=== PATIENT | male | born 1990 | race Caucasian/White ===

== ENCOUNTER 2017-08-31 06:25 | Outpatient (CLI) | payer MEDICAID | END 2017-08-31 06:26 | disposition short-term general hospital (02) | LOC: EMS 06:25 | PROVIDERS: ATTEND Surgery | DX: R46.89 Other symptoms and signs involving appearance and behavior (principal) | CPT/HCPCS: A0425; A0429; A0888; A0999 ==

== ENCOUNTER 2017-09-16 14:15 | Emergency (ER) | payer MEDICAID ==
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
[2017-09-16 15:08] LABS: BASOPHILS # (AUTO) 0.1 10^3/uL (0.0-0.1); BASOPHILS % (AUTO) 1.1 %; EOSINOPHILS # (AUTO) 0.1 10^3/uL (0.0-0.7); EOSINOPHILS % (AUTO) 2.1 %; HGB - HEMOGLOBIN 15.1 g/dL (14.0-18.0); LYMPHOCYTES # (AUTO) 1.4 10^3/uL (1.5-3.5); LYMPHOCYTES % (AUTO) 20.6 %; MEAN CORPUSCULAR HEMOGLOBIN 29.6 pg (27.0-31.0); MEAN CORPUSCULAR HGB CONC 34.1 g/dL (32.0-36.0); MEAN PLATELET VOLUME 6.5 fL (7.4-11.4); MONOCYTES # (AUTO) 0.4 10^3/uL (0.0-1.0); MONOCYTES % (AUTO) 5.3 %; NEUTROPHILS # (AUTO) 4.8 10^3/uL (1.5-6.6); NEUTROPHILS % (AUTO) 70.9 %; PLT - PLATELET COUNT 318 10^3/uL (130-450); RED CELL DISTRIBUTION WIDTH 13.4 % (12.0-15.0); WHITE BLOOD COUNT 6.8 x10^3/uL (4.8-10.8)
[2017-09-16 15:21] LABS: LITHIUM 0.21 mmol/L
[2017-09-16 15:26] LABS: ALBUMIN 4.3 g/dL (3.2-5.5); ALBUMIN/GLOBULIN RATIO 1.2 (1.0-2.2); ALKALINE PHOSPHATASE 71 IU/L (42-121); ALT ALANINE AMINOTRANSFERASE 22 IU/L (10-60); AST ASPARTATE AMINOTRANSFERASE 28 IU/L (10-42); BUN - BLOOD UREA NITROGEN 12 mg/dL (6-20); CALCIUM 9.5 mg/dL (8.5-10.3); CARBON DIOXIDE - CO2 26 mmol/L (21-32); CHLORIDE 106 mmol/L (101-111); CREATININE 0.9 mg/dL (0.6-1.2); GFR - MDRD 102 (>89); GLUCOSE 92 mg/dL (70-100); LIPASE 21 U/L (22-51); SALICYLATE < 6.0 mg/dL; SODIUM 140 mmol/L (135-145); TOTAL PROTEIN 7.8 g/dL (6.7-8.2)
[2017-09-16 15:40] LABS: ACETAMINOPHEN < 10 ug/mL (10-30)
[2017-09-16 15:48] LABS: MUDS CUTOFF CONCENTRATIONS CUTOFF CONC BELOW:
[2017-09-16 15:49] LABS: BILIRUBIN,URINE NEGATIVE (NEGATIVE); GLUCOSE, URINE (UA) NEGATIVE (NEGATIVE); KETONES,URINE (UA) NEGATIVE (NEGATIVE); LEUKOCYTE ESTERASE, URINE NEGATIVE (NEGATIVE); NITRITE,URINE NEGATIVE (NEGATIVE); OCCULT BLOOD,URINE NEGATIVE (NEGATIVE); PH,URINE 6.5 PH (5.0-7.5); PROTEIN,URINE NEGATIVE (NEGATIVE); UROBILINOGEN,URINE 0.2 (NORMAL) E.U./dL (NORMAL)
[2017-09-16 15:51] LABS: CLARITY,URINE CLEAR (CLEAR)
[2017-09-16 15:59] LABS: AMPHETAMINE SCREEN,URINE NEGATIVE (NEGATIVE); BENZODIAZEPINES SCREEN, URINE NEGATIVE (NEGATIVE); COCAINE SCREEN URINE NEGATIVE (NEGATIVE); METHADONE SCREEN, URINE NEGATIVE (NEGATIVE); METHAMPHETAMINES SCREEN, URINE NEGATIVE (NEGATIVE); OPIATE SCREEN, URINE NEGATIVE (NEGATIVE); OXYCODONE SCREEN, URINE NEGATIVE (NEGATIVE); PROPOXYPHENE SCREEN, URINE NEGATIVE (NEGATIVE); TRICYCLIC ANTIDEPRESSANT,URINE NEGATIVE (NEGATIVE)
[2017-09-16] MEDS ORDERED: OLANZapine ODT 5 MG TABLET TL STA (19:42)
[2017-09-16] MEDS ORDERED: LITHIUM 150 MG CAPSULE PO STA (19:43)
--- NOTE | 2017-09-16 19:54 | TELEPSYCH PHYS NOTE ---
Telepsych Note - DRUG/ALCOHOL HX Substance Use and Type: Marijuana ETOH Use: Beer - MEDICAL HX Does the pt have a hx of MRSA?: No Neurological History: None Eyes, Ears, Nose, Throat: Chronic vision loss Cardiovascular: None Respiratory: None - HOME MEDICATIONS Home Meds (as last confirmed): Patient History Medication Instructions Recorded Confirmed Home Medications Unobtainable 09/16/17 09/16/17 [HOME MEDICATIONS UNOBTAINABLE] - ALLERGIES Allergies (as last confirmed): Allergies Allergy/AdvReac Type Severity Reaction Status Date / Time Unable to Assess Allergy Verified 09/16/17 14:24
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
[2017-09-17] MEDS ORDERED: OLANZapine ODT 5 MG TABLET TL STA (00:37)
--- NOTE | 2017-09-17 06:30 | ED Physician Documentation ---
ED Addendum - Addendum Addendum: 09/17/17 07:00 AM The patient's care was turned over to me by the off going emergency physician. The patient has been medically cleared and currently is pending evaluation by social work. The patient currently is voluntary. Please refer to the prior physicians history and physical for a comprehensive history. The patient was stable throughout the evening and currently is pending evaluation by social work. The patient's care will be turned over to the oncoming emergency physician Dr. De Jesus for final disposition
[2017-09-17] MEDS ORDERED: LITHIUM 150 MG CAPSULE PO STA ×2 (07:53→18:52)
[2017-09-17] MEDS ORDERED: ARIPiprazole 5 MG TABLET PO STA (07:54)
--- NOTE | 2017-09-17 22:54 | ED Physician Documentation ---
ED Addendum - Addendum Addendum: Patient signed out to me after SW saw the patient. At this time it does not appear that the patient is able to be voluntary and will need [facility] evaluation. He is on a [address] and is actively talking to multiple people in the room, although no one else is actually in the room. Appears acutely decompensated. Jayla [facility], came and placed the patient on an invol hold. [facility] accepts, Dr. Hugo Gardiner at approx [phone]. Patient will need to arrive at approx 0900 tomorrow at [facility]. Maintained on lithium and abilify here. This document was made in part using voice recognition software. While efforts are made to proofread this document, sound alike and grammatical errors may occur. Departure - Departure Disposition: 65 Psych Hosp/Unit DC/Ayan Clinical Impression: Severe bipolar I disorder, recurrent manic episode, with psychotic behavior Condition: Stable
[2017-09-18] MEDS ORDERED: OLANZapine ODT 5 MG TABLET TL STA (02:54)
[2017-09-18] MEDS ORDERED: ARIPiprazole 5 MG TABLET PO STA (07:37)
[2017-09-18] MEDS ORDERED: LITHIUM 150 MG CAPSULE PO STA (07:37)
[2017-09-18 09:18] VITALS: BP 154/92
== END 2017-09-18 09:33 ==
LOC: ED 14:24
DX: Z04.6 Encounter for general psychiatric examination, requested by authority (principal); F31.2 Bipolar disorder, current episode manic severe with psychotic features; S90.822A Blister (nonthermal), left foot, initial encounter; X58.XXXA Exposure to other specified factors, initial encounter; Y93.01 Activity, walking, marching and hiking; R45.851 Suicidal ideations; T43.596A Underdosing of other antipsychotics and neuroleptics, initial encounter; G47.00 Insomnia, unspecified; Z75.1 Person awaiting admission to adequate facility elsewhere
CPT/HCPCS: 36415; 80053; 80178; 80306; 80307; 80320; 80329; 81003; 83690; 85025; 97597; 99284; 99285; A9270; G0425; Q3014; 81001; 87086

== ENCOUNTER 2018-02-26 13:39 | Outpatient (CLI) | payer MEDICAID | END 2018-02-26 13:40 | disposition critical access hospital (66) | LOC: EMS 13:39 | PROVIDERS: ATTEND Surgery | DX: Z04.6 Encounter for general psychiatric examination, requested by authority (principal) | CPT/HCPCS: A0425; A0429 ==

== ENCOUNTER 2018-02-26 14:14 | Emergency (ER) | payer MEDICAID ==
--- NOTE | 2018-02-26 14:38 | ED Physician Documentation ---
PD HPI MHE - Stated complaint Stated Complaint: MHE - Chief complaint Chief Complaint: MHE - History obtained from History obtained from: Patient - History of Present Illness Primary symptom: Psychosis, Anxiety, Other (not taking meds) Timing - onset: How many days ago (several days of not taking meds and worsening behavior at home.) Contributing factors: Other (family reports not taking all his meds regularly and acting manic and not eating/drinking.). No: Substance abuse - ETOH, Substance abuse - drugs Similar symptoms before: Diagnosis (bipolar disorder with hospitalization) Review of Systems Constitutional: denies: Fever Nose: denies: Rhinorrhea / runny nose, Congestion Throat: denies: Sore throat Respiratory: denies: Dyspnea, Cough GI: denies: Abdominal Pain, Nausea, Vomiting, Diarrhea Neurologic: denies: Focal weakness, Numbness, Confused, Headache Psychiatric: denies: Suicidal, Hallucinations PD PAST MEDICAL HISTORY - Past Medical History Cardiovascular: None Respiratory: None Neuro: None Endocrine/Autoimmune: None Psych: Bipolar disorder - Present Medications Home Medications: Ambulatory Orders Medication Instructions Recorded Confirmed Claude Carbonate [Claude 450 mg PO BID 02/26/18 02/26/18 Carbonate ER] OLANZapine [Zyprexa] 10 mg PO DAILY 02/26/18 02/26/18 - Allergies Allergies/Adverse Reactions: Allergies Allergy/AdvReac Type Severity Reaction Status Date / Time No Known Drug Allergies Allergy Verified 02/26/18 14:21 PD ED PE NORMAL - Vitals Vital signs reviewed: Yes - General General: Alert and oriented X 3, Well developed/nourished, Other (seems anxious and somewhat paranoid, stating he feels his family is trying to kill him (not saying in what way) and he is stating he feels he needs to be off his medications so that he can think more clearly.) - HEENT HEENT: Pharynx benign - Neck Neck: Supple, no meningeal sign, No adenopathy - Cardiac Cardiac: RRR, No murmur - Respiratory Respiratory: Clear bilaterally - Abdomen Abdomen: Soft, Non tender - Back Back: No CVA TTP - Derm Derm: Normal color, Warm and dry - Neuro Neuro: Alert and oriented X 3, No motor deficit, Normal speech, Other (ambulates without ataxia) Eye Opening: Spontaneous Motor: Obeys Commands Verbal: Oriented GCS Score: 15 - Psych Psych: No: Normal mood (anxious), Normal affect (somewhat paranoid) Results - Vitals Vitals: Vital Signs - 24 hr 02/26/18 14:18 Temperature 36.8 C Heart Rate 75 Respiratory 16 Rate Blood Pressure 152/87 H O2 Saturation 98 Oxygen O2 Source Room air - Labs Labs: Laboratory Tests 02/26/18 02/26/18 02/26/18 14:30 14:30 14:30 WBC 7.7 RBC 4.69 L Hgb 14.2 Hct 41.0 L MCV 87.4 MCH 30.2 MCHC 34.5 RDW 13.8 Plt Count 257 MPV 6.6 L Neut # (Auto) 5.7 Lymph # (Auto) 1.1 L [place] # (Auto) 0.6 Eos # (Auto) 0.2 Baso # (Auto) 0.1 Absolute Nucleated RBC 0.00 Nucleated RBC % 0.0 Sodium 136 Potassium 3.5 Chloride 101 Carbon Dioxide 24 Anion Gap 11.0 BUN 18 Creatinine 1.0 Estimated GFR (MDRD) 90 Glucose 96 Calcium 9.5 Total Bilirubin 1.7 H AST 38 ALT 18 Alkaline Phosphatase 67 Total Protein 7.5 Albumin 4.6 Globulin 2.9 Albumin/Globulin Ratio 1.6 Lipase 21 L TSH 1.77 Urine Color Urine Clarity Urine pH Ur Specific [place] Urine Protein Urine Glucose (UA) Urine Ketones Urine Occult Blood Urine Nitrite Urine Bilirubin Urine Urobilinogen Ur Leukocyte Esterase Ur Microscopic Review Urine Culture Comments Last Dose Date Last Dose Time Salicylates < 6.0 Urine Opiates Screen Ur Oxycodone Screen Urine Methadone Screen Ur Propoxyphene Screen Acetaminophen < 10 L Ur Barbiturates Screen Ur Tricyclics Screen Ur Phencyclidine Scrn Ur Amphetamine Screen U Methamphetamines Scrn U Benzodiazepines Scrn [place] Urine Cocaine Screen U Cannabinoids Screen Ethyl Alcohol < 5.0 02/26/18 02/26/18 15:03 15:06 WBC RBC Hgb Hct MCV MCH MCHC RDW Plt Count MPV Neut # (Auto) Lymph # (Auto) [place] # (Auto) Eos # (Auto) Baso # (Auto) Absolute Nucleated RBC Nucleated RBC % Sodium Potassium Chloride Carbon Dioxide Anion Gap BUN Creatinine Estimated GFR (MDRD) Glucose Calcium Total Bilirubin AST ALT Alkaline Phosphatase Total Protein Albumin Globulin Albumin/Globulin Ratio Lipase TSH Urine Color YELLOW Urine Clarity CLEAR Urine pH 6.5 Ur Specific [place] 1.020 Urine Protein TRACE Urine Glucose (UA) NEGATIVE Urine Ketones >=80 H Urine Occult Blood NEGATIVE Urine Nitrite NEGATIVE Urine Bilirubin NEGATIVE Urine Urobilinogen 0.2 (NORMAL) Ur Leukocyte Esterase NEGATIVE Ur Microscopic Review NOT INDICATED Urine Culture Comments NOT INDICATED Last Dose Date UNKNOWN Last Dose Time UNKNOWN Salicylates Urine Opiates Screen NEGATIVE Ur Oxycodone Screen NEGATIVE Urine Methadone Screen NEGATIVE Ur Propoxyphene Screen NEGATIVE Acetaminophen Ur Barbiturates Screen NEGATIVE Ur Tricyclics Screen NEGATIVE Ur Phencyclidine Scrn NEGATIVE Ur Amphetamine Screen NEGATIVE U Methamphetamines Scrn NEGATIVE U Benzodiazepines Scrn NEGATIVE [place] 1.54 H* Urine Cocaine Screen NEGATIVE U Cannabinoids Screen POSITIVE H Ethyl Alcohol PD MEDICAL DECISION MAKING - ED course Complexity details: reviewed results (his lithium level is elevated, presume to some dehydration and he had taken dose about 1 hour [employer] INS[employer]. He is not having any nausea, ataxia, headache. ECG is okay and vitals are good. No apparent toxicity symptoms. He is drinking lots of fluids here in the ER for us, so is rehydrating. ), re-evaluated patient (He remained calm and cooperative in the emergency department. He did allow for p.o. medications of Zyprexa and then an Ativan subsequently. He is resting now. He did drink lots of fluids at least 4 full glasses of water for us here.), considered differential, d/w patient, d/w bilingual sales consultant (JINA Dickerson. ) Departure - Departure Disposition: 65 Psych Hosp/Unit DC/Xfer Clinical Impression: Elevated lithium level, Severe bipolar I disorder, recurrent manic episode, with psychotic behavior Condition: Stable Record reviewed to determine appropriate education?: Yes
[2018-02-26 14:44] LABS: BASOPHILS # (AUTO) 0.1 10^3/uL (0.0-0.1); BASOPHILS % (AUTO) 0.8 %; EOSINOPHILS # (AUTO) 0.2 10^3/uL (0.0-0.7); EOSINOPHILS % (AUTO) 2.3 %; HGB - HEMOGLOBIN 14.2 g/dL (14.0-18.0); LYMPHOCYTES # (AUTO) 1.1 10^3/uL (1.5-3.5); LYMPHOCYTES % (AUTO) 14.5 %; MEAN CORPUSCULAR HEMOGLOBIN 30.2 pg (27.0-31.0); MEAN CORPUSCULAR HGB CONC 34.5 g/dL (32.0-36.0); MEAN CORPUSCULAR VOLUME 87.4 fL (80.0-94.0); MEAN PLATELET VOLUME 6.6 fL (7.4-11.4); MONOCYTES # (AUTO) 0.6 10^3/uL (0.0-1.0); MONOCYTES % (AUTO) 8.4 %; NEUTROPHILS # (AUTO) 5.7 10^3/uL (1.5-6.6); PLT - PLATELET COUNT 257 10^3/uL (130-450); RED BLOOD COUNT 4.69 10^6/uL (4.70-6.10); RED CELL DISTRIBUTION WIDTH 13.8 % (12.0-15.0); WHITE BLOOD COUNT 7.7 x10^3/uL (4.8-10.8)
[2018-02-26] MEDS ORDERED: OLANZapine ODT 5 MG TABLET TL ONE (14:58)
[2018-02-26 15:01] LABS: ACETAMINOPHEN < 10 ug/mL (10-30); ALBUMIN 4.6 g/dL (3.2-5.5); ALBUMIN/GLOBULIN RATIO 1.6 (1.0-2.2); ALKALINE PHOSPHATASE 67 IU/L (42-121); ALT ALANINE AMINOTRANSFERASE 18 IU/L (10-60); AST ASPARTATE AMINOTRANSFERASE 38 IU/L (10-42); BILIRUBIN,TOTAL 1.7 mg/dL (0.2-1.0); BUN - BLOOD UREA NITROGEN 18 mg/dL (6-20); CALCIUM 9.5 mg/dL (8.5-10.3); CARBON DIOXIDE - CO2 24 mmol/L (21-32); CHLORIDE 101 mmol/L (101-111); GFR - MDRD 90 (>89); GLUCOSE 96 mg/dL (70-100); LIPASE 21 U/L (22-51); SALICYLATE < 6.0 mg/dL; SODIUM 136 mmol/L (135-145); TOTAL PROTEIN 7.5 g/dL (6.7-8.2)
[2018-02-26 15:09] LABS: MUDS CUTOFF CONCENTRATIONS CUTOFF CONC BELOW:
[2018-02-26 15:11] LABS: BILIRUBIN,URINE NEGATIVE (NEGATIVE); GLUCOSE, URINE (UA) NEGATIVE (NEGATIVE); KETONES,URINE (UA) >=80 mg/dL (NEGATIVE); LEUKOCYTE ESTERASE, URINE NEGATIVE (NEGATIVE); NITRITE,URINE NEGATIVE (NEGATIVE); OCCULT BLOOD,URINE NEGATIVE (NEGATIVE); PH,URINE 6.5 PH (5.0-7.5); PROTEIN,URINE TRACE mg/dL (NEGATIVE); UROBILINOGEN,URINE 0.2 (NORMAL) E.U./dL (NORMAL)
[2018-02-26 15:29] LABS: CLARITY,URINE CLEAR (CLEAR)
[2018-02-26 15:30] LABS: AMPHETAMINE SCREEN,URINE NEGATIVE (NEGATIVE); BENZODIAZEPINES SCREEN, URINE NEGATIVE (NEGATIVE); COCAINE SCREEN URINE NEGATIVE (NEGATIVE); METHADONE SCREEN, URINE NEGATIVE (NEGATIVE); METHAMPHETAMINES SCREEN, URINE NEGATIVE (NEGATIVE); OPIATE SCREEN, URINE NEGATIVE (NEGATIVE); OXYCODONE SCREEN, URINE NEGATIVE (NEGATIVE); PROPOXYPHENE SCREEN, URINE NEGATIVE (NEGATIVE); TRICYCLIC ANTIDEPRESSANT,URINE NEGATIVE (NEGATIVE)
[2018-02-26 16:01] LABS: LITHIUM 1.54 mmol/L
[2018-02-26] MEDS ORDERED: LORazepam 0.5 MG TABLET PO STA (16:28)
[2018-02-26 18:59] VITALS: BP 148/92
== END 2018-02-26 19:05 ==
LOC: EDUNIT# → ED 14:14
DX: F31.2 Bipolar disorder, current episode manic severe with psychotic features (principal); R78.89 Finding of other specified substances, not normally found in blood; E86.0 Dehydration; T43.596A Underdosing of other antipsychotics and neuroleptics, initial encounter; Z91.128 Patient's intentional underdosing of medication regimen for other reason
CPT/HCPCS: 36415; 80053; 80178; 80306; 80307; 80320; 80329; 81003; 83690; 84443; 85025; 93005; 99283; 99284; A9270; 81001; 87086

== ENCOUNTER 2018-03-05 18:11 | Emergency (ER) | payer MEDICAID ==
[2018-03-05 18:35] LABS: BASOPHILS # (AUTO) 0.1 10^3/uL (0.0-0.1); BASOPHILS % (AUTO) 1.2 %; EOSINOPHILS # (AUTO) 0.2 10^3/uL (0.0-0.7); EOSINOPHILS % (AUTO) 2.4 %; HGB - HEMOGLOBIN 15.4 g/dL (14.0-18.0); LYMPHOCYTES # (AUTO) 1.9 10^3/uL (1.5-3.5); LYMPHOCYTES % (AUTO) 29.2 %; MEAN CORPUSCULAR HEMOGLOBIN 29.2 pg (27.0-31.0); MEAN CORPUSCULAR HGB CONC 33.2 g/dL (32.0-36.0); MEAN CORPUSCULAR VOLUME 87.9 fL (80.0-94.0); MEAN PLATELET VOLUME 6.5 fL (7.4-11.4); MONOCYTES # (AUTO) 0.6 10^3/uL (0.0-1.0); MONOCYTES % (AUTO) 8.8 %; NEUTROPHILS # (AUTO) 3.8 10^3/uL (1.5-6.6); NEUTROPHILS % (AUTO) 58.4 %; PLT - PLATELET COUNT 329 10^3/uL (130-450); RED BLOOD COUNT 5.28 10^6/uL (4.70-6.10); RED CELL DISTRIBUTION WIDTH 13.6 % (12.0-15.0); WHITE BLOOD COUNT 6.5 x10^3/uL (4.8-10.8)
--- NOTE | 2018-03-05 18:46 | ED Physician Documentation ---
PD HPI MHE - Stated complaint Stated Complaint: MHE - Chief complaint Chief Complaint: MHE - History obtained from History obtained from: Patient - History of Present Illness Primary symptom: Psychosis (tangential thought scattered, with paranoid thoughts of his parents trying to keep him awake ("sitting with him all day and night"). He went to counselor at [facility], who felt the patient was hypomanic and paranoid. Parents saying the patient is not taking his meds. He is reportedly on LRO from [facility] to take meds.) Timing - onset: How many days ago (few) Contributing factors: Off meds (reportedly not taking regularly, though patient says he is.). No: Family, Substance abuse - ETOH, Substance abuse - drugs Similar symptoms before: Diagnosis (bipolar disorder with paranoia) Recently seen: Emergency Dept (seen a week ago for noncompliance and was admitted to [facility] for 3 days. Released 3 days ago and reportedly still having psych symptoms.), Admitted Review of Systems Constitutional: denies: Fever Nose: denies: Rhinorrhea / runny nose, Congestion Throat: denies: Sore throat Respiratory: denies: Cough GI: denies: Vomiting, Diarrhea Skin: denies: Rash, Lesions Musculoskeletal: denies: Neck pain, Back pain Neurologic: denies: Focal weakness, Numbness, Headache, Head injury Psychiatric: reports: Anxiety, Insomnia. denies: Suicidal, Homicidal, Hallucinations Endocrine: denies: Weight loss PD PAST MEDICAL HISTORY - Past Medical History Cardiovascular: None Respiratory: None Neuro: None Endocrine/Autoimmune: None GI: None : None HEENT: Chronic vision loss Psych: Bipolar disorder Musculoskeletal: None Derm: None - Past Surgical History Past Surgical History: No - Present Medications Home Medications: Ambulatory Orders Medication Instructions Recorded Confirmed [place] [employer] Carbonate [[place] [employer] 450 mg PO BID 02/26/18 03/05/18 Carbonate ER] OLANZapine [Zyprexa] 10 mg PO DAILY 02/26/18 03/05/18 - Allergies Allergies/Adverse Reactions: Allergies Allergy/AdvReac Type Severity Reaction Status Date / Time Sulfa (Sulfonamide Allergy Unknown Verified 03/05/18 18:56 Antibiotics) - Social History Does the pt smoke?: No Smoking Status: Never smoker Does the pt drink ETOH?: Yes Does the pt have substance abuse?: Yes - Immunizations Immunizations are current?: Yes - POLST Patient has POLST: No PD ED PE NORMAL - Vitals Vital signs reviewed: Yes - General General: Alert and oriented X 3, Well developed/nourished - HEENT HEENT: Pharynx benign. No: Moist mucous membranes - Neck Neck: Supple, no meningeal sign, No adenopathy - Cardiac Cardiac: RRR, No murmur - Respiratory Respiratory: Clear bilaterally - Abdomen Abdomen: Soft, Non tender - Derm Derm: Normal color, Warm and dry - Extremities Extremities: Normal ROM s pain - Neuro Neuro: Alert and oriented X 3, No motor deficit, Normal speech Eye Opening: Spontaneous Motor: Obeys Commands Verbal: Oriented GCS Score: 15 - Psych Psych: No: Normal mood (paranoid thoughts about his parents wanting to keep him awake for days to make him act crazy. He says he is taking his meds. His counselor brought med pack and some meds were still there. ) Results - Vitals Vitals: Vital Signs - 24 hr 03/05/18 03/05/18 18:19 20:51 Temperature 36.1 C L 36.9 C Heart Rate 95 92 Respiratory 16 15 Rate Blood Pressure 144/108 H 138/108 H O2 Saturation 98 97 Oxygen O2 Source Room air - Labs Labs: Laboratory Tests 03/05/18 03/05/18 03/05/18 18:29 18:29 18:29 WBC 6.5 RBC 5.28 Hgb 15.4 Hct 46.4 MCV 87.9 MCH 29.2 MCHC 33.2 RDW 13.6 Plt Count 329 MPV 6.5 L Neut # (Auto) 3.8 Lymph # (Auto) 1.9 [place] # (Auto) 0.6 Eos # (Auto) 0.2 Baso # (Auto) 0.1 Absolute Nucleated RBC 0.00 Nucleated RBC % 0.0 Sodium 134 L Potassium 3.3 L Chloride 98 L Carbon Dioxide 26 Anion Gap 10.0 BUN 10 Creatinine 1.2 Estimated GFR (MDRD) 73 L Glucose 102 H Calcium 9.6 Total Bilirubin 1.3 H AST 30 ALT 21 Alkaline Phosphatase 93 Total Protein 8.3 H Albumin 5.3 Globulin 3.0 Albumin/Globulin Ratio 1.8 Lipase 21 L Urine Color Urine Clarity Urine pH Ur Specific [place] Urine Protein Urine Glucose (UA) Urine Ketones Urine Occult Blood Urine Nitrite Urine Bilirubin Urine Urobilinogen Ur Leukocyte Esterase Ur Microscopic Review Urine Culture Comments Last Dose Date UNKNOWN Last Dose Time UNKNOWN Salicylates < 6.0 Urine Opiates Screen Ur Oxycodone Screen Urine Methadone Screen Ur Propoxyphene Screen Acetaminophen < 10 L Ur Barbiturates Screen Ur Tricyclics Screen Ur Phencyclidine Scrn Ur Amphetamine Screen U Methamphetamines Scrn U Benzodiazepines Scrn [place] [employer] [place] 0.51 Urine Cocaine Screen U Cannabinoids Screen Ethyl Alcohol < 5.0 03/05/18 Unknown WBC RBC Hgb Hct MCV MCH MCHC RDW Plt Count MPV Neut # (Auto) Lymph # (Auto) [place] # (Auto) Eos # (Auto) Baso # (Auto) Absolute Nucleated RBC Nucleated RBC % Sodium Potassium Chloride Carbon Dioxide Anion Gap BUN Creatinine Estimated GFR (MDRD) Glucose Calcium Total Bilirubin AST ALT Alkaline Phosphatase Total Protein Albumin Globulin Albumin/Globulin Ratio Lipase Urine Color YELLOW Urine Clarity CLEAR Urine pH 6.5 Ur Specific [place] 1.015 Urine Protein NEGATIVE Urine Glucose (UA) NEGATIVE Urine Ketones 40 H Urine Occult Blood NEGATIVE Urine Nitrite NEGATIVE Urine Bilirubin NEGATIVE Urine Urobilinogen 0.2 (NORMAL) Ur Leukocyte Esterase NEGATIVE Ur Microscopic Review NOT INDICATED Urine Culture Comments NOT INDICATED Last Dose Date Last Dose Time Salicylates Urine Opiates Screen NEGATIVE Ur Oxycodone Screen NEGATIVE Urine Methadone Screen NEGATIVE Ur Propoxyphene Screen NEGATIVE Acetaminophen Ur Barbiturates Screen NEGATIVE Ur Tricyclics Screen NEGATIVE Ur Phencyclidine Scrn NEGATIVE Ur Amphetamine Screen NEGATIVE U Methamphetamines Scrn NEGATIVE U Benzodiazepines Scrn NEGATIVE [place] [employer] [place] Urine Cocaine Screen NEGATIVE U Cannabinoids Screen POSITIVE H Ethyl Alcohol PD MEDICAL DECISION MAKING - ED course Complexity details: considered differential (Our high school social studies tutor is about done on his shift. However the patient is reportedly noncompliant and is having paranoia and tangential thoughts. He does not seem gravely disabled at this moment but given the LR O for taking his medicines, it seems reasonable he would likely have this revoked so would be under the auspices of the VOA and DCR. Wi ll call them to have them come see the patient.), d/w patient Departure - Departure Clinical Impression: Noncompliance with medication regimen Bipolar affective disorder Qualifiers: Active/Remission status: currently active Current bipolar episode type: h ypomanic Qualified Code(s): F31.0 - Bipolar disorder, current episode hypomanic Condition: Stable Record reviewed to determine appropriate education?: Yes
[2018-03-05 18:52] LABS: ACETAMINOPHEN < 10 ug/mL (10-30); ALBUMIN 5.3 g/dL (3.2-5.5); ALBUMIN/GLOBULIN RATIO 1.8 (1.0-2.2); ALKALINE PHOSPHATASE 93 IU/L (42-121); ALT ALANINE AMINOTRANSFERASE 21 IU/L (10-60); AST ASPARTATE AMINOTRANSFERASE 30 IU/L (10-42); BILIRUBIN,TOTAL 1.3 mg/dL (0.2-1.0); BUN - BLOOD UREA NITROGEN 10 mg/dL (6-20); CALCIUM 9.6 mg/dL (8.5-10.3); CARBON DIOXIDE - CO2 26 mmol/L (21-32); CHLORIDE 98 mmol/L (101-111); CREATININE 1.2 mg/dL (0.6-1.2); GFR - MDRD 73 (>89); GLUCOSE 102 mg/dL (70-100); LIPASE 21 U/L (22-51); SALICYLATE < 6.0 mg/dL; SODIUM 134 mmol/L (135-145); TOTAL PROTEIN 8.3 g/dL (6.7-8.2)
[2018-03-05 19:08] LABS: LITHIUM 0.51 mmol/L
[2018-03-05 19:23] LABS: MUDS CUTOFF CONCENTRATIONS CUTOFF CONC BELOW:
[2018-03-05 19:27] LABS: BILIRUBIN,URINE NEGATIVE (NEGATIVE); GLUCOSE, URINE (UA) NEGATIVE (NEGATIVE); KETONES,URINE (UA) 40 mg/dL (NEGATIVE); LEUKOCYTE ESTERASE, URINE NEGATIVE (NEGATIVE); NITRITE,URINE NEGATIVE (NEGATIVE); OCCULT BLOOD,URINE NEGATIVE (NEGATIVE); PH,URINE 6.5 PH (5.0-7.5); PROTEIN,URINE NEGATIVE (NEGATIVE); UROBILINOGEN,URINE 0.2 (NORMAL) E.U./dL (NORMAL)
[2018-03-05 19:29] LABS: CLARITY,URINE CLEAR (CLEAR)
[2018-03-05 19:35] LABS: AMPHETAMINE SCREEN,URINE NEGATIVE (NEGATIVE); BENZODIAZEPINES SCREEN, URINE NEGATIVE (NEGATIVE); COCAINE SCREEN URINE NEGATIVE (NEGATIVE); METHADONE SCREEN, URINE NEGATIVE (NEGATIVE); METHAMPHETAMINES SCREEN, URINE NEGATIVE (NEGATIVE); OPIATE SCREEN, URINE NEGATIVE (NEGATIVE); OXYCODONE SCREEN, URINE NEGATIVE (NEGATIVE); PROPOXYPHENE SCREEN, URINE NEGATIVE (NEGATIVE); TRICYCLIC ANTIDEPRESSANT,URINE NEGATIVE (NEGATIVE)
--- NOTE | 2018-03-05 23:15 | ED Physician Documentation ---
PD HPI MHE - Stated complaint Stated Complaint: MHE - Chief complaint Chief Complaint: MHE PD PAST MEDICAL HISTORY - Past Medical History Cardiovascular: None Respiratory: None Neuro: None Endocrine/Autoimmune: None GI: None : None HEENT: Chronic vision loss Psych: Bipolar disorder Musculoskeletal: None Derm: None - Past Surgical History Past Surgical History: No - Present Medications Home Medications: Ambulatory Orders Medication Instructions Recorded Confirmed [place] Carbonate [[place] 450 mg PO BID 02/26/18 03/05/18 Carbonate ER] OLANZapine [Zyprexa] 10 mg PO DAILY 02/26/18 03/05/18 - Allergies Allergies/Adverse Reactions: Allergies Allergy/AdvReac Type Severity Reaction Status Date / Time Sulfa (Sulfonamide Allergy Unknown Verified 03/05/18 18:56 Antibiotics) - Social History Does the pt smoke?: No Smoking Status: Never smoker Does the pt drink ETOH?: Yes Does the pt have substance abuse?: Yes - Immunizations Immunizations are current?: Yes - POLST Patient has POLST: No Results - Vitals Vitals: Vital Signs - 24 hr 03/05/18 03/05/18 03/05/18 18:19 20:51 22:41 Temperature 36.1 C L 36.9 C Heart Rate 95 92 106 H Respiratory 16 15 16 Rate Blood Pressure 144/108 H 138/108 H 147/86 H O2 Saturation 98 97 98 Oxygen O2 Source Room air - Labs Labs: Laboratory Tests 03/05/18 03/05/18 03/05/18 18:29 18:29 18:29 WBC 6.5 RBC 5.28 Hgb 15.4 Hct 46.4 MCV 87.9 MCH 29.2 MCHC 33.2 RDW 13.6 Plt Count 329 MPV 6.5 L Neut # (Auto) 3.8 Lymph # (Auto) 1.9 [place] # (Auto) 0.6 Eos # (Auto) 0.2 Baso # (Auto) 0.1 Absolute Nucleated RBC 0.00 Nucleated RBC % 0.0 Sodium 134 L Potassium 3.3 L Chloride 98 L Carbon Dioxide 26 Anion Gap 10.0 BUN 10 Creatinine 1.2 Estimated GFR (MDRD) 73 L Glucose 102 H Calcium 9.6 Total Bilirubin 1.3 H AST 30 ALT 21 Alkaline Phosphatase 93 Total Protein 8.3 H Albumin 5.3 Globulin 3.0 Albumin/Globulin Ratio 1.8 Lipase 21 L Urine Color Urine Clarity Urine pH Ur Specific [place] Urine Protein Urine Glucose (UA) Urine Ketones Urine Occult Blood Urine Nitrite Urine Bilirubin Urine Urobilinogen Ur Leukocyte Esterase Ur Microscopic Review Urine Culture Comments Last Dose Date UNKNOWN Last Dose Time UNKNOWN Salicylates < 6.0 Urine Opiates Screen Ur Oxycodone Screen Urine Methadone Screen Ur Propoxyphene Screen Acetaminophen < 10 L Ur Barbiturates Screen Ur Tricyclics Screen Ur Phencyclidine Scrn Ur Amphetamine Screen U Methamphetamines Scrn U Benzodiazepines Scrn [place] 0.51 Urine Cocaine Screen U Cannabinoids Screen Ethyl Alcohol < 5.0 03/05/18 Unknown WBC RBC Hgb Hct MCV MCH MCHC RDW Plt Count MPV Neut # (Auto) Lymph # (Auto) [place] # (Auto) Eos # (Auto) Baso # (Auto) Absolute Nucleated RBC Nucleated RBC % Sodium Potassium Chloride Carbon Dioxide Anion Gap BUN Creatinine Estimated GFR (MDRD) Glucose Calcium Total Bilirubin AST ALT Alkaline Phosphatase Total Protein Albumin Globulin Albumin/Globulin Ratio Lipase Urine Color YELLOW Urine Clarity CLEAR Urine pH 6.5 Ur Specific [place] 1.015 Urine Protein NEGATIVE Urine Glucose (UA) NEGATIVE Urine Ketones 40 H Urine Occult Blood NEGATIVE Urine Nitrite NEGATIVE Urine Bilirubin NEGATIVE Urine Urobilinogen 0.2 (NORMAL) Ur Leukocyte Esterase NEGATIVE Ur Microscopic Review NOT INDICATED Urine Culture Comments NOT INDICATED Last Dose Date Last Dose Time Salicylates Urine Opiates Screen NEGATIVE Ur Oxycodone Screen NEGATIVE Urine Methadone Screen NEGATIVE Ur Propoxyphene Screen NEGATIVE Acetaminophen Ur Barbiturates Screen NEGATIVE Ur Tricyclics Screen NEGATIVE Ur Phencyclidine Scrn NEGATIVE Ur Amphetamine Screen NEGATIVE U Methamphetamines Scrn NEGATIVE U Benzodiazepines Scrn NEGATIVE [place] Urine Cocaine Screen NEGATIVE U Cannabinoids Screen POSITIVE H Ethyl Alcohol PD MEDICAL DECISION MAKING - ED course ED course: 27-year-old male with history of bipolar disorder accepted signout from Dr. Gardiner. Patient pending voluntary placement. Patient without complaint at this time. Resting comfortably. Signed out to incoming provider. Departure - Departure Clinical Impression: Noncompliance with medication regimen Bipolar affective disorder Qualifiers: Active/Remission status: currently active Current bipolar episode type: hypomanic Qualified Code(s): F31.0 - Bipolar disorder, current episode hypomanic Condition: Stable
[2018-03-06] MEDS ORDERED: POTASSIUM CHLORIDE 20 MEQ TABLET PO STA (01:30)
[2018-03-06] MEDS ORDERED: SODIUM CHLORIDE 0.9% 2,000 ML IV ONE (01:39)
[2018-03-06 02:47] VITALS: BP 118/83
== END 2018-03-06 03:01 ==
LOC: ED 18:11
DX: F31.0 Bipolar disorder, current episode hypomanic (principal); Z91.14 Patient's other noncompliance with medication regimen
CPT/HCPCS: 36415; 80053; 80178; 80306; 80307; 80320; 80329; 81003; 83690; 85025; 93005; 96360; 99284; A9270; 81001; 87086

== ENCOUNTER 2018-03-06 03:03 | Outpatient (CLI) | payer MEDICAID | END 2018-03-06 03:04 | disposition other institution (70) | LOC: EMS 03:03 | PROVIDERS: ATTEND Surgery | CPT/HCPCS: A0425; A0428; A0999 ==

== ENCOUNTER 2018-05-08 11:15 | Emergency (ER) | payer MEDICAID ==
--- NOTE | 2018-05-08 12:04 | ED Physician Documentation ---
History of Present Illness - Stated complaint Stated Complaint: MHE - Chief complaint Chief Complaint: MHE - History obtained from History obtained from: Patient - Additonal information Additional information: Patient is a 27-year-old male with history of bipolar disorder presenting with concern for decompensation in his outpatient therapy. Patient was brought in by his outpatient provider. Patient was previously an inpatient facility and since discharge, has slowly been declining. Patient reports that his symptoms have worsened because of an argument with his father. He admits to alcohol use and there is questionable marijuana use. Patient denies suicidal ideation, homicidal ideation, or hallucinations. However, patient has declining hygiene levels and is experiencing paranoia.Patient denies other medical complaints such as fever, shortness of breath, cough, abdominal pain, vomiting, urinary or stool changes. No other improving or worsening factors noted to his symptoms. Review of Systems Constitutional: denies: Fever Psychiatric: denies: Suicidal, Homicidal, Hallucinations PD PAST MEDICAL HISTORY - Past Medical History Cardiovascular: None Respiratory: None Neuro: None Endocrine/Autoimmune: None GI: None : None HEENT: Chronic vision loss Psych: Bipolar disorder Musculoskeletal: None Derm: None - Past Surgical History Past Surgical History: No - Present Medications Home Medications: Ambulatory Orders Medication Instructions Recorded Confirmed [place] Carbonate [[place] 450 mg PO BID 02/26/18 05/08/18 Carbonate ER] OLANZapine [Zyprexa] 10 mg PO DAILY 02/26/18 05/08/18 Levothyroxine [Synthroid] 125 mcg PO QDAC 05/08/18 05/08/18 - Allergies Allergies/Adverse Reactions: Allergies Allergy/AdvReac Type Severity Reaction Status Date / Time Sulfa (Sulfonamide Allergy Unknown Verified 05/08/18 11:30 Antibiotics) - Social History Does the pt smoke?: No Smoking Status: Never smoker Does the pt drink ETOH?: Yes Does the pt have substance abuse?: Yes - Immunizations Immunizations are current?: Yes - POLST Patient has POLST: No PD ED PE NORMAL - General General: Alert and oriented X 3, No acute distress, Well developed/nourished, Other (Pacing around room, poor hygiene) - HEENT HEENT: Atraumatic, PERRL, Moist mucous membranes, Pharynx benign - Cardiac Cardiac: RRR, No murmur - Respiratory Respiratory: No respiratory distress, Clear bilaterally - Abdomen Abdomen: Normal bowel sounds, Soft, Non tender, Non distended - Derm Derm: Normal color, Warm and dry, No rash - Neuro Neuro: Alert and oriented X 3, No motor deficit, No sensory deficit (No gross motor or sensory deficits noted) - Psych Psych: Other (Flat affect. Poor eye contact. Denies suicidal or homicidal ideations, as well as hallucinations) Results - Vitals Vitals: Vital Signs - 24 hr 05/08/18 11:27 Temperature 36.5 C Heart Rate 79 Respiratory 14 Rate Blood Pressure 146/82 H O2 Saturation 98 Oxygen O2 Source Room air - EKG (time done) 1312 Rate: Rate (enter#) (63) Rhythm: NSR Ischemia: Other (Early repolarization noted) - Labs Labs: Laboratory Tests 05/08/18 05/08/18 05/08/18 12:06 12:06 12:06 WBC 8.1 RBC 4.92 Hgb 14.3 Hct 42.3 MCV 86.0 MCH 29.1 MCHC 33.9 RDW 13.7 Plt Count 319 MPV 6.7 L Neut # (Auto) 5.8 Lymph # (Auto) 1.5 [place] # (Auto) 0.5 Eos # (Auto) 0.2 Baso # (Auto) 0.1 Absolute Nucleated RBC 0.00 Nucleated RBC % 0.0 Sodium 137 Potassium 3.4 L Chloride 104 Carbon Dioxide 24 Anion Gap 9.0 BUN 9 Creatinine 1.0 Estimated GFR (MDRD) 90 Glucose 106 H Calcium 10.1 Total Bilirubin 1.0 AST 27 ALT 16 Alkaline Phosphatase 93 Total Protein 8.4 H Albumin 5.2 Globulin 3.2 Albumin/Globulin Ratio 1.6 Lipase 26 TSH 0.81 Urine Color Urine Clarity Urine pH Ur Specific [employer] Urine Protein Urine Glucose (UA) Urine Ketones Urine Occult Blood Urine Nitrite Urine Bilirubin Urine Urobilinogen Ur Leukocyte Esterase Ur Microscopic Review Urine Culture Comments Last Dose Date Last Dose Time Salicylates < 6.0 Urine Opiates Screen Ur Oxycodone Screen Urine Methadone Screen Ur Propoxyphene Screen Acetaminophen < 10 L Ur Barbiturates Screen Ur Tricyclics Screen Ur Phencyclidine Scrn Ur Amphetamine Screen U Methamphetamines Scrn U Benzodiazepines Scrn [place] Urine Cocaine Screen U Cannabinoids Screen Ethyl Alcohol < 5.0 05/08/18 05/08/18 13:36 17:22 WBC RBC Hgb Hct MCV MCH MCHC RDW Plt Count MPV Neut # (Auto) Lymph # (Auto) [place] # (Auto) Eos # (Auto) Baso # (Auto) Absolute Nucleated RBC Nucleated RBC % Sodium Potassium Chloride Carbon Dioxide Anion Gap BUN Creatinine Estimated GFR (MDRD) Glucose Calcium Total Bilirubin AST ALT Alkaline Phosphatase Total Protein Albumin Globulin Albumin/Globulin Ratio Lipase TSH Urine Color YELLOW Urine Clarity CLEAR Urine pH 7.5 Ur Specific [employer] 1.010 Urine Protein NEGATIVE Urine Glucose (UA) NEGATIVE Urine Ketones NEGATIVE Urine Occult Blood NEGATIVE Urine Nitrite NEGATIVE Urine Bilirubin NEGATIVE Urine Urobilinogen 0.2 (NORMAL) Ur Leukocyte Esterase NEGATIVE Ur Microscopic Review NOT INDICATED Urine Culture Comments NOT INDICATED Last Dose Date UNKNOWN Last Dose Time UNKNOWN Salicylates Urine Opiates Screen NEGATIVE Ur Oxycodone Screen NEGATIVE Urine Methadone Screen NEGATIVE Ur Propoxyphene Screen NEGATIVE Acetaminophen Ur Barbiturates Screen NEGATIVE Ur Tricyclics Screen NEGATIVE Ur Phencyclidine Scrn NEGATIVE Ur Amphetamine Screen NEGATIVE U Methamphetamines Scrn NEGATIVE U Benzodiazepines Scrn NEGATIVE [place] 0.97 Urine Cocaine Screen NEGATIVE U Cannabinoids Screen NEGATIVE Ethyl Alcohol PD MEDICAL DECISION MAKING - ED course Complexity details: reviewed results, re-evaluated patient, considered differential, d/w patient, d/w [employer] consultant ED course: Patient presenting requesting mental health evaluation. Patient was accompanied by his outpatient clinician, who is concerned about the patient's decompensation since discharge from an inpatient facility for his mental illness. Patient admits to use of alcohol and possibly recreational drugs. He denies self-harm behavior, as well as suicidal or homicidal ideation, and hallucinations. Patient also denies any regular medical complaints. Do not find evidence of new trauma, neurological deficit, or systemic infection on exam. Screening lab work, urinalysis, EKG obtained. Social work consulted and evaluated patient in ED. Social work starting process for placement. Screening lab work, urinalysis, drug testing returned relatively unremarkable. Social work reported that multiple locations including [facility] are not willing to take patient voluntarily at this time. Social work is working on potential detainment for grave disability. [facility] contacted, evaluated patient, and placed him back to [facility]. Departure - Departure Disposition: 02 Transfer Acute Care Hosp Clinical Impression: Grave disability
[2018-05-08 12:16] LABS: BASOPHILS # (AUTO) 0.1 10^3/uL (0.0-0.1); BASOPHILS % (AUTO) 1.2 %; EOSINOPHILS # (AUTO) 0.2 10^3/uL (0.0-0.7); EOSINOPHILS % (AUTO) 2.2 %; HGB - HEMOGLOBIN 14.3 g/dL (14.0-18.0); LYMPHOCYTES # (AUTO) 1.5 10^3/uL (1.5-3.5); LYMPHOCYTES % (AUTO) 18.2 %; MEAN CORPUSCULAR HEMOGLOBIN 29.1 pg (27.0-31.0); MEAN CORPUSCULAR HGB CONC 33.9 g/dL (32.0-36.0); MEAN PLATELET VOLUME 6.7 fL (7.4-11.4); MONOCYTES # (AUTO) 0.5 10^3/uL (0.0-1.0); MONOCYTES % (AUTO) 6.5 %; NEUTROPHILS # (AUTO) 5.8 10^3/uL (1.5-6.6); NEUTROPHILS % (AUTO) 71.9 %; PLT - PLATELET COUNT 319 10^3/uL (130-450); RED BLOOD COUNT 4.92 10^6/uL (4.70-6.10); RED CELL DISTRIBUTION WIDTH 13.7 % (12.0-15.0); WHITE BLOOD COUNT 8.1 x10^3/uL (4.8-10.8)
[2018-05-08 12:30] LABS: ACETAMINOPHEN < 10 ug/mL (10-30); ALBUMIN 5.2 g/dL (3.2-5.5); ALBUMIN/GLOBULIN RATIO 1.6 (1.0-2.2); ALKALINE PHOSPHATASE 93 IU/L (42-121); ALT ALANINE AMINOTRANSFERASE 16 IU/L (10-60); AST ASPARTATE AMINOTRANSFERASE 27 IU/L (10-42); BUN - BLOOD UREA NITROGEN 9 mg/dL (6-20); CALCIUM 10.1 mg/dL (8.5-10.3); CARBON DIOXIDE - CO2 24 mmol/L (21-32); CHLORIDE 104 mmol/L (101-111); GFR - MDRD 90 (>89); GLUCOSE 106 mg/dL (70-100); LIPASE 26 U/L (22-51); SALICYLATE < 6.0 mg/dL; SODIUM 137 mmol/L (135-145); TOTAL PROTEIN 8.4 g/dL (6.7-8.2)
[2018-05-08 13:47] LABS: MUDS CUTOFF CONCENTRATIONS CUTOFF CONC BELOW:
[2018-05-08 13:57] LABS: BILIRUBIN,URINE NEGATIVE (NEGATIVE); GLUCOSE, URINE (UA) NEGATIVE (NEGATIVE); KETONES,URINE (UA) NEGATIVE (NEGATIVE); LEUKOCYTE ESTERASE, URINE NEGATIVE (NEGATIVE); NITRITE,URINE NEGATIVE (NEGATIVE); OCCULT BLOOD,URINE NEGATIVE (NEGATIVE); PH,URINE 7.5 PH (5.0-7.5); PROTEIN,URINE NEGATIVE (NEGATIVE); UROBILINOGEN,URINE 0.2 (NORMAL) E.U./dL (NORMAL)
[2018-05-08 13:59] LABS: CLARITY,URINE CLEAR (CLEAR)
[2018-05-08 14:02] LABS: AMPHETAMINE SCREEN,URINE NEGATIVE (NEGATIVE); BENZODIAZEPINES SCREEN, URINE NEGATIVE (NEGATIVE); COCAINE SCREEN URINE NEGATIVE (NEGATIVE); METHADONE SCREEN, URINE NEGATIVE (NEGATIVE); METHAMPHETAMINES SCREEN, URINE NEGATIVE (NEGATIVE); OPIATE SCREEN, URINE NEGATIVE (NEGATIVE); OXYCODONE SCREEN, URINE NEGATIVE (NEGATIVE); PROPOXYPHENE SCREEN, URINE NEGATIVE (NEGATIVE); TRICYCLIC ANTIDEPRESSANT,URINE NEGATIVE (NEGATIVE)
[2018-05-08 18:08] LABS: LITHIUM 0.97 mmol/L
[2018-05-08 18:20] VITALS: BP 113/69
== END 2018-05-08 22:35 | disposition short-term general hospital (02) ==
LOC: ED 11:15
DX: Z00.8 Encounter for other general examination (principal); F99 Mental disorder, not otherwise specified
CPT/HCPCS: 36415; 80053; 80178; 80306; 80307; 80320; 80329; 81001; 81003; 83690; 84443; 85025; 87086; 93005; 99283; 99284

== ENCOUNTER 2018-05-08 22:35 | Outpatient (CLI) | payer MEDICAID | END 2018-05-08 22:36 | LOC: EMS 22:35 | PROVIDERS: ATTEND Surgery | DX: F99 Mental disorder, not otherwise specified (principal) | CPT/HCPCS: A0425; A0428; A0999 ==

== ENCOUNTER 2020-10-18 11:40 | Emergency (ER) | payer BC, MEDICAID ==
[2020-10-18 12:00] VITALS: BP 145/89
[2020-10-18 13:35] LABS: BASOPHILS # (AUTO) 0.1 10^3/uL (0.0-0.1); EOSINOPHILS # (AUTO) 0.2 10^3/uL (0.0-0.7); EOSINOPHILS % (AUTO) 2.9 %; HCT - HEMATOCRIT 44.1 % (42.0-52.0); HGB - HEMOGLOBIN 14.8 g/dL (14.0-18.0); LYMPHOCYTES # (AUTO) 1.2 10^3/uL (1.5-3.5); LYMPHOCYTES % (AUTO) 19.7 %; MEAN CORPUSCULAR HGB CONC 33.6 g/dL (32.0-36.0); MEAN CORPUSCULAR VOLUME 89.3 fL (80.0-94.0); MEAN PLATELET VOLUME 8.7 fL (7.4-11.4); MONOCYTES # (AUTO) 0.5 10^3/uL (0.0-1.0); MONOCYTES % (AUTO) 7.3 %; NEUTROPHILS # (AUTO) 4.4 10^3/uL (1.5-6.6); NEUTROPHILS % (AUTO) 68.8 %; PLT - PLATELET COUNT 261 10^3/uL (130-450); RED BLOOD COUNT 4.94 10^6/uL (4.70-6.10); RED CELL DISTRIBUTION WIDTH 12.5 % (12.0-15.0); WHITE BLOOD COUNT 6.3 x10^3/uL (4.8-10.8)
[2020-10-18 13:44] LABS: MUDS CUTOFF CONCENTRATIONS CUTOFF CONC BELOW:
[2020-10-18 13:52] LABS: ACETAMINOPHEN < 10 ug/mL (10-30); ALBUMIN 5.2 g/dL (3.2-5.5); ALBUMIN/GLOBULIN RATIO 1.8 (1.0-2.2); ALKALINE PHOSPHATASE 65 IU/L (42-121); ALT ALANINE AMINOTRANSFERASE 16 IU/L (10-60); AST ASPARTATE AMINOTRANSFERASE 22 IU/L (10-42); BILIRUBIN,TOTAL 0.9 mg/dL (0.2-1.0); BUN - BLOOD UREA NITROGEN 15 mg/dL (6-20); CALCIUM 10.2 mg/dL (8.5-10.3); CARBON DIOXIDE - CO2 25 mmol/L (21-32); CHLORIDE 102 mmol/L (101-111); CREATININE 1.1 mg/dL (0.6-1.2); ETOH - ETHANOL < 5.0 mg/dL; GFR - MDRD 79 (>89); GLUCOSE 114 mg/dL (70-100); LIPASE 26 U/L (22-51); POTASSIUM 3.7 mmol/L (3.5-5.0); SALICYLATE < 6.0 mg/dL; SODIUM 137 mmol/L (135-145); TOTAL PROTEIN 8.1 g/dL (6.7-8.2)
[2020-10-18 13:53] LABS: BILIRUBIN,URINE NEGATIVE (NEGATIVE); GLUCOSE, URINE (UA) NEGATIVE (NEGATIVE); KETONES,URINE (UA) NEGATIVE (NEGATIVE); LEUKOCYTE ESTERASE, URINE NEGATIVE (NEGATIVE); NITRITE,URINE NEGATIVE (NEGATIVE); OCCULT BLOOD,URINE NEGATIVE (NEGATIVE); PH,URINE 7.5 PH (5.0-7.5); PROTEIN,URINE NEGATIVE (NEGATIVE); UROBILINOGEN,URINE 0.2 (NORMAL) E.U./dL (NORMAL)
[2020-10-18 13:56] LABS: CLARITY,URINE CLEAR (CLEAR)
[2020-10-18 14:02] LABS: AMPHETAMINE SCREEN,URINE NEGATIVE (NEGATIVE); BARBITURATE SCREEN,UR NEGATIVE (NEGATIVE); BENZODIAZEPINES SCREEN, URINE NEGATIVE (NEGATIVE); COCAINE SCREEN URINE NEGATIVE (NEGATIVE); METHADONE SCREEN, URINE NEGATIVE (NEGATIVE); METHAMPHETAMINES SCREEN, URINE NEGATIVE (NEGATIVE); OPIATE SCREEN, URINE NEGATIVE (NEGATIVE); OXYCODONE SCREEN, URINE NEGATIVE (NEGATIVE); PROPOXYPHENE SCREEN, URINE NEGATIVE (NEGATIVE); THC CANNABINOID SCREEN, URINE NEGATIVE (NEGATIVE); TRICYCLIC ANTIDEPRESSANT,URINE NEGATIVE (NEGATIVE)
--- NOTE | 2020-10-18 14:17 | ED Physician Documentation ---
History of Present Illness - Stated complaint Stated Complaint: MHE - Chief complaint Chief Complaint: MHE - History obtained from History obtained from: Patient - History of Present Illness Timing: Today Pain level max: 0 Pain level now: 0 - Additonal information Additional information: Patient is a 29-year-old male who presents to the emergency department stating that he normally receives paliperidone every 3 months, however he feels like the date was miscalculated and he is starting to feel generally unwell. Difficulty sleeping, feeling restless. He states he is not suicidal or homicidal. He does not wish to speak with the licensed master social worker at this time. He states that he used to be on Geodon and that this helped as well. He is still taking his lithium. Review of Systems Constitutional: denies: Fever, Chills Respiratory: denies: Cough GI: denies: Nausea, Vomiting, Diarrhea PD PAST MEDICAL HISTORY - Past Medical History Cardiovascular: None Respiratory: None Neuro: None Endocrine/Autoimmune: None GI: None : None HEENT: Chronic vision loss Psych: Bipolar disorder, Other Musculoskeletal: None Derm: None - Past Surgical History Past Surgical History: No - Present Medications Home Medications: Ambulatory Orders Medication Instructions Recorded Confirmed [place] Carbonate [[place] 450 mg PO BID 02/26/18 05/08/18 Carbonate ER] OLANZapine [Zyprexa] 10 mg PO DAILY 02/26/18 05/08/18 Levothyroxine [Synthroid] 125 mcg PO QDAC 05/08/18 05/08/18 ziprasidone HCL [Geodon] 20 mg PO DAILY #10 cap 10/18/20 - Allergies Allergies/Adverse Reactions: Allergies Allergy/AdvReac Type Severity Reaction Status Date / Time Sulfa (Sulfonamide Allergy Unknown Verified 10/18/20 12:00 Antibiotics) - Social History Does the pt smoke?: No Smoking Status: Never smoker Does the pt drink ETOH?: Yes ETOH Use: Beer Does the pt have substance abuse?: No - Immunizations Immunizations are current?: Yes - POLST Patient has POLST: No PD ED PE NORMAL - Vitals Vital signs reviewed: Yes - General General: Alert and oriented X 3, No acute distress, Well developed/nourished - HEENT HEENT: Moist mucous membranes - Neck Neck: Supple, no meningeal sign - Cardiac Cardiac: RRR, Strong equal pulses - Respiratory Respiratory: No respiratory distress, Clear bilaterally - Abdomen Abdomen: Soft, Non tender, Non distended - Derm Derm: Warm and dry - Extremities Extremities: No edema - Neuro Neuro: Alert and oriented X 3 - Psych Psych: Normal mood, Normal affect Results - Vitals Vitals: Vital Signs - 24 hr 10/18/20 11:57 Temperature 36.1 C L Heart Rate 89 Respiratory 16 Rate Blood Pressure 145/89 H O2 Saturation 97 Oxygen O2 Source Room air - Labs Labs: Laboratory Tests 10/18/20 10/18/20 10/18/20 13:23 13:23 13:23 WBC 6.3 RBC 4.94 Hgb 14.8 Hct 44.1 MCV 89.3 MCH 30.0 MCHC 33.6 RDW 12.5 Plt Count 261 MPV 8.7 Neut # (Auto) 4.4 Lymph # (Auto) 1.2 L [place] # (Auto) 0.5 Eos # (Auto) 0.2 Baso # (Auto) 0.1 Absolute Nucleated RBC 0.00 Nucleated RBC % 0.0 Sodium 137 Potassium 3.7 Chloride 102 Carbon Dioxide 25 Anion Gap 10.0 BUN 15 Creatinine 1.1 Estimated GFR (MDRD) 79 L Glucose 114 H Calcium 10.2 Total Bilirubin 0.9 AST 22 ALT 16 Alkaline Phosphatase 65 Total Protein 8.1 Albumin 5.2 Globulin 2.9 Albumin/Globulin Ratio 1.8 Lipase 26 TSH 4.62 Urine Color Urine Clarity Urine pH Ur Specific [place] Urine Protein Urine Glucose (UA) Urine Ketones Urine Occult Blood Urine Nitrite Urine Bilirubin Urine Urobilinogen Ur Leukocyte Esterase Ur Microscopic Review Urine Culture Comments Last Dose Date Last Dose Time Salicylates < 6.0 Urine Opiates Screen Ur Oxycodone Screen Urine Methadone Screen Ur Propoxyphene Screen Acetaminophen < 10 L Ur Barbiturates Screen Ur Tricyclics Screen Ur Phencyclidine Scrn Ur Amphetamine Screen U Methamphetamines Scrn U Benzodiazepines Scrn [place] Urine Cocaine Screen U Cannabinoids Screen Ethyl Alcohol < 5.0 10/18/20 10/18/20 10/18/20 13:23 13:34 13:34 WBC RBC Hgb Hct MCV MCH MCHC RDW Plt Count MPV Neut # (Auto) Lymph # (Auto) [place] # (Auto) Eos # (Auto) Baso # (Auto) Absolute Nucleated RBC Nucleated RBC % Sodium Potassium Chloride Carbon Dioxide Anion Gap BUN Creatinine Estimated GFR (MDRD) Glucose Calcium Total Bilirubin AST ALT Alkaline Phosphatase Total Protein Albumin Globulin Albumin/Globulin Ratio Lipase TSH Urine Color YELLOW Urine Clarity CLEAR Urine pH 7.5 Ur Specific [place] 1.010 Urine Protein NEGATIVE Urine Glucose (UA) NEGATIVE Urine Ketones NEGATIVE Urine Occult Blood NEGATIVE Urine Nitrite NEGATIVE Urine Bilirubin NEGATIVE Urine Urobilinogen 0.2 (NORMAL) Ur Leukocyte Esterase NEGATIVE Ur Microscopic Review NOT INDICATED Urine Culture Comments NOT INDICATED Last Dose Date UNK Last Dose Time UNK Salicylates Urine Opiates Screen NEGATIVE Ur Oxycodone Screen NEGATIVE Urine Methadone Screen NEGATIVE Ur Propoxyphene Screen NEGATIVE Acetaminophen Ur Barbiturates Screen NEGATIVE Ur Tricyclics Screen NEGATIVE Ur Phencyclidine Scrn NEGATIVE Ur Amphetamine Screen NEGATIVE U Methamphetamines Scrn NEGATIVE U Benzodiazepines Scrn NEGATIVE [place] 0.92 Urine Cocaine Screen NEGATIVE U Cannabinoids Screen NEGATIVE Ethyl Alcohol PD MEDICAL DECISION MAKING - ED course Complexity details: reviewed results, re-evaluated patient, considered differential, d/w patient ED course: 29-year-old male, calm and cooperative in the emergency department. Requesting a short course of Geodon to get him through until his paliperidone injection. Denies suicidal or homicidal ideation. Patient will follow up with his doctor tomorrow. Patient counseled regarding signs and symptoms for which I believe and urgent re-evaluation would be necessary. Patient with good understanding of and agreement to plan and is comfortable going home at this time This document was made in part using voice recognition software. While efforts are made to proofread this document, sound alike and grammatical errors may occur. Departure - Departure Disposition: 01 Home, Self Care Clinical Impression: Bipolar affective disorder Qualifiers: Active/Remission status: currently active Current bipolar episode type: mixed Current episode severity: mild Qualified Code(s): F31.61 - Bipolar disorder, current episode mixed, mild Condition: Good Instructions: ED Manic Depression Follow-Up: Guilherme Zarco MD [Primary Care Provider] - Within 3 Days Prescriptions: ziprasidone HCL [Geodon] 20 mg PO DAILY #10 cap Comments: We have sent a prescription for Geodon for you to [facility] in [place]. 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 Follow-up with your doctor for further care. You should contact to the [facility] clinic tomorrow to see if they can move up your appointment. Dr. Zarco may be able to help with this as well
[2020-10-18 14:36] LABS: LITHIUM 0.92 mmol/L
== END 2020-10-18 15:09 | disposition home or self-care (01) ==
LOC: ED 11:40
DX: F31.61 Bipolar disorder, current episode mixed, mild (principal)
CPT/HCPCS: 36415; 80053; 80178; 80306; 80307; 80320; 80329; 81001; 81003; 83690; 84443; 85025; 87086; 99283

== ENCOUNTER 2020-10-23 13:08 | Emergency (ER) | payer BC, MEDICAID ==
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
[2020-10-23 13:33] LABS: BASOPHILS # (AUTO) 0.1 10^3/uL (0.0-0.1); BASOPHILS % (AUTO) 0.9 %; EOSINOPHILS # (AUTO) 0.2 10^3/uL (0.0-0.7); EOSINOPHILS % (AUTO) 2.8 %; HCT - HEMATOCRIT 45.2 % (42.0-52.0); HGB - HEMOGLOBIN 15.3 g/dL (14.0-18.0); LYMPHOCYTES # (AUTO) 1.1 10^3/uL (1.5-3.5); LYMPHOCYTES % (AUTO) 15.2 %; MEAN CORPUSCULAR HEMOGLOBIN 30.1 pg (27.0-31.0); MEAN CORPUSCULAR HGB CONC 33.8 g/dL (32.0-36.0); MEAN CORPUSCULAR VOLUME 88.8 fL (80.0-94.0); MEAN PLATELET VOLUME 8.3 fL (7.4-11.4); MONOCYTES # (AUTO) 0.6 10^3/uL (0.0-1.0); MONOCYTES % (AUTO) 7.7 %; NEUTROPHILS # (AUTO) 5.4 10^3/uL (1.5-6.6); NEUTROPHILS % (AUTO) 73.3 %; PLT - PLATELET COUNT 282 10^3/uL (130-450); RED BLOOD COUNT 5.09 10^6/uL (4.70-6.10); RED CELL DISTRIBUTION WIDTH 12.6 % (12.0-15.0); WHITE BLOOD COUNT 7.4 x10^3/uL (4.8-10.8)
[2020-10-23 13:47] LABS: ACETAMINOPHEN < 10 ug/mL (10-30); ALBUMIN 5.3 g/dL (3.2-5.5); ALBUMIN/GLOBULIN RATIO 1.8 (1.0-2.2); ALKALINE PHOSPHATASE 67 IU/L (42-121); ALT ALANINE AMINOTRANSFERASE 18 IU/L (10-60); AST ASPARTATE AMINOTRANSFERASE 25 IU/L (10-42); BILIRUBIN,TOTAL 0.9 mg/dL (0.2-1.0); BUN - BLOOD UREA NITROGEN 10 mg/dL (6-20); CALCIUM 9.8 mg/dL (8.5-10.3); CARBON DIOXIDE - CO2 26 mmol/L (21-32); CHLORIDE 99 mmol/L (101-111); CREATININE 1.1 mg/dL (0.6-1.2); ETOH - ETHANOL < 5.0 mg/dL; GFR - MDRD 79 (>89); GLUCOSE 122 mg/dL (70-100); LIPASE 22 U/L (22-51); POTASSIUM 3.5 mmol/L (3.5-5.0); SALICYLATE < 6.0 mg/dL; SODIUM 135 mmol/L (135-145); TOTAL PROTEIN 8.3 g/dL (6.7-8.2)
[2020-10-23 14:04] LABS: MUDS CUTOFF CONCENTRATIONS CUTOFF CONC BELOW:
[2020-10-23 14:07] LABS: BILIRUBIN,URINE NEGATIVE (NEGATIVE); GLUCOSE, URINE (UA) NEGATIVE (NEGATIVE); KETONES,URINE (UA) NEGATIVE (NEGATIVE); LEUKOCYTE ESTERASE, URINE NEGATIVE (NEGATIVE); NITRITE,URINE NEGATIVE (NEGATIVE); OCCULT BLOOD,URINE NEGATIVE (NEGATIVE); PH,URINE 7.5 PH (5.0-7.5); PROTEIN,URINE NEGATIVE (NEGATIVE); UROBILINOGEN,URINE 0.2 (NORMAL) E.U./dL (NORMAL)
[2020-10-23 14:13] LABS: CLARITY,URINE CLEAR (CLEAR)
[2020-10-23 14:18] LABS: AMPHETAMINE SCREEN,URINE NEGATIVE (NEGATIVE); BARBITURATE SCREEN,UR NEGATIVE (NEGATIVE); BENZODIAZEPINES SCREEN, URINE NEGATIVE (NEGATIVE); COCAINE SCREEN URINE NEGATIVE (NEGATIVE); METHADONE SCREEN, URINE NEGATIVE (NEGATIVE); METHAMPHETAMINES SCREEN, URINE NEGATIVE (NEGATIVE); OPIATE SCREEN, URINE NEGATIVE (NEGATIVE); OXYCODONE SCREEN, URINE NEGATIVE (NEGATIVE); PROPOXYPHENE SCREEN, URINE NEGATIVE (NEGATIVE); THC CANNABINOID SCREEN, URINE NEGATIVE (NEGATIVE); TRICYCLIC ANTIDEPRESSANT,URINE NEGATIVE (NEGATIVE)
[2020-10-23 14:57] LABS: LITHIUM 0.69 mmol/L
[2020-10-23 14:57] LABS: B. PARAPERTUSSIS- RESP PCR PAN NOT DETECTED; B. PERTUSSIS- RESP PCR PANEL NOT DETECTED; C. PNEUMONIAE- RESP PCR PANEL NOT DETECTED; CORONAVIRUS 229E-RESP PCR NOT DETECTED; CORONAVIRUS HKU1-RESP PCR NOT DETECTED; CORONAVIRUS NL63-RESP PCR NOT DETECTED; CORONAVIRUS OC43-RESP PCR NOT DETECTED; HUMAN METAPNEUMOVIRUS NOT DETECTED; INFLUENZA A- RESP PCR PANEL NOT DETECTED; INFLUENZA B - RESP PCR PANEL NOT DETECTED; M. PNEUMONIAE- RESP PCR PANEL NOT DETECTED; PARAINFLUENZA VIRUS 1 NOT DETECTED; PARAINFLUENZA VIRUS 2 NOT DETECTED; PARAINFLUENZA VIRUS 3 NOT DETECTED; PARAINFLUENZA VIRUS 4 NOT DETECTED; RHINOVIRUS/ENTEROVIRUS NOT DETECTED; RSV- RESP PCR PANEL NOT DETECTED; SARS-CoV-2 -RESP PCR PANEL NOT DETECTED
[2020-10-23 19:45] VITALS: BP 134/88
[2020-10-23] MEDS ORDERED: OLANZapine ODT 5 MG TABLET TL STA (20:11)
== END 2020-10-23 20:28 ==
LOC: ED 13:08
DX: F31.2 Bipolar disorder, current episode manic severe with psychotic features (principal); Z20.822 Contact with and (suspected) exposure to COVID-19
CPT/HCPCS: 0202U; 36415; 80053; 80178; 80306; 80307; 80320; 80329; 81003; 83690; 84443; 85025; 93005; 99283; 99285; A9270; 81001; 87086

== ENCOUNTER 2023-02-21 10:12 | Outpatient (CLI) | payer MEDICAID ==
[2023-02-21 10:39] LABS: BASOPHILS # (AUTO) 0.1 10^3/uL (0.0-0.1); BASOPHILS % (AUTO) 1.1 %; EOSINOPHILS # (AUTO) 0.2 10^3/uL (0.0-0.7); EOSINOPHILS % (AUTO) 5.2 %; HCT - HEMATOCRIT 45.5 % (42.0-52.0); HGB - HEMOGLOBIN 15.6 g/dL (14.0-18.0); LYMPHOCYTES # (AUTO) 1.7 10^3/uL (1.5-3.5); LYMPHOCYTES % (AUTO) 35.6 %; MEAN CORPUSCULAR HEMOGLOBIN 29.5 pg (27.0-31.0); MEAN CORPUSCULAR HGB CONC 34.3 g/dL (32.0-36.0); MEAN PLATELET VOLUME 8.7 fL (7.4-11.4); MONOCYTES # (AUTO) 0.3 10^3/uL (0.0-1.0); MONOCYTES % (AUTO) 7.1 %; NEUTROPHILS # (AUTO) 2.4 10^3/uL (1.5-6.6); NEUTROPHILS % (AUTO) 50.8 %; PLT - PLATELET COUNT 226 10^3/uL (130-450); RED BLOOD COUNT 5.29 10^6/uL (4.70-6.10); RED CELL DISTRIBUTION WIDTH 12.7 % (12.0-15.0); WHITE BLOOD COUNT 4.7 x10^3/uL (4.8-10.8)
[2023-02-21 10:56] LABS: ALBUMIN 4.8 g/dL (3.2-5.5); ALBUMIN/GLOBULIN RATIO 1.8 (1.0-2.2); ALKALINE PHOSPHATASE 62 IU/L (42-121); ALT ALANINE AMINOTRANSFERASE 14 IU/L (10-60); AST ASPARTATE AMINOTRANSFERASE 15 IU/L (10-42); BILIRUBIN,TOTAL 0.5 mg/dL (0.2-1.0); BUN - BLOOD UREA NITROGEN 15 mg/dL (6-20); CALCIUM 10.3 mg/dL (8.5-10.3); CARBON DIOXIDE - CO2 29 mmol/L (21-32); CHLORIDE 104 mmol/L (101-111); CHOL/HDL RATIO 6.1 (<5.0); CHOLESTEROL 218 mg/dL; CREATININE 1.1 mg/dL (0.6-1.3); GFR - MDRD 78 (>89); GLUCOSE 101 mg/dL (74-104); HDL CHOLESTEROL 36 mg/dL; LDL CHOLESTEROL,CALCULATED 139 mg/dL; LDL/HDL RATIO 3.9 (<3.6); POTASSIUM 4.2 mmol/L (3.5-4.5); SODIUM 139 mmol/L (135-145); TOTAL PROTEIN 7.5 g/dL (6.4-8.9); TRIGLYCERIDES 214 mg/dL (48-352); VLDL CHOLESTEROL 43 mg/dL
[2023-02-21 11:35] LABS: LITHIUM 0.57 mmol/L
[2023-02-21 13:02] LABS: ESTIMATED AVERAGE GLUCOSE 94 mg/dL (70-100); HEMOGLOBIN A1c% 4.9 % (4.27-6.07)
[2023-02-21 20:09] LABS: PROLACTIN 52.18 ng/mL; THYROID STIMULATING HORMONE 1.69 uIU/mL (0.34-5.60)
== END 2023-02-21 10:13 | disposition home or self-care (01) ==
LOC: LAB 10:12
PROVIDERS: ATTEND Nurse Practitioner Psychiatric/Mental Health
DX: F31.12 Bipolar disorder, current episode manic without psychotic features, moderate (principal); Z79.899 Other long term (current) drug therapy
CPT/HCPCS: 36415; 80053; 80061; 80178; 81003; 81599; 83036; 83721; 84146; 84443; 85025